=== PATIENT | male | born 1940 | race Caucasian/White ===

== ENCOUNTER → 2018-09-11 11:32 | Outpatient (CLI) | payer MEDICARE, OTHER, SELFPAY ==
--- NOTE | 2018-09-11 | DI.RAD.S_ITS ---
PROCEDURE: XR HIP W PEL IF DONE LT 2V INDICATIONS: Left HIP PAIN/DYSFUNCTION TECHNIQUE: 2 views of the hip were acquired. COMPARISON: None. FINDINGS: Bones: No fractures or dislocations. 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 No suspicious bony lesions. The visualized pelvic ring appears intact. Soft tissues: No suspicious soft tissue calcifications or masses. IMPRESSION: Left hip arthroplasty with prosthesis in anatomic alignment. Dictated by: Rahat Malagon M.D. on 09/11/2018 at 13:30 Approved by: Rahat Malagon M.D. on 09/11/2018 at 13:36
== END ==
PROVIDERS: Visit Provider Chiropractor
DX: M25.552 Pain in left hip (principal); M25.551 Pain in right hip; M99.05 Segmental and somatic dysfunction of pelvic region; Z96.642 Presence of left artificial hip joint
CPT/HCPCS: 73502